=== PATIENT | female | born 1975 | race Caucasian/White ===

== ENCOUNTER 2016-10-30 01:09 | Emergency (ER) | payer BC ==
[~2016-10-30 01:09] MED LIST: ACETAMINOPHEN/O1 TA3 PO; CIPRO500 MG PO; COL100 PO; CRYSELLE1 TAB PO; ELA10 PO; IBU600 M1 PO; LEVOTHYROXINE0.1 M2 PO; LEVOTHYROXINE0.1 MG PO; MAXALT MLT5 MG PO; MOR2I IV; NOR10T PO; NORCO1 TA2 PO; NPHOS PO; ONDANSETRON ODT4 M1 PO; ROC1I IM; TOR30I IV; ULT50 PO; ZOFI IV
[2016-10-30 02:03] VITALS: BP 131/88
== END 2016-10-30 02:03 | disposition home or self-care (01) ==
LOC: ED 01:09
DX: R68.84 Jaw pain (principal); E07.9 Disorder of thyroid, unspecified; G43.909 Migraine, unspecified, not intractable, without status migrainosus; Z79.899 Other long term (current) drug therapy
CPT/HCPCS: J1170; Q0162